=== PATIENT | female | born 1985 | race Caucasian/White ===

== ENCOUNTER 2017-03-31 09:00 | Inpatient (IN) ==
[2017-03-31] MEDS ORDERED: LACTATED RINGERS 500 ML IV PRN (09:25)
[2017-03-31] MEDS ORDERED: ONDANSETRON 4 MG/2 ML VIAL IV PRN ×2 (09:25→12:01)
[2017-03-31] MEDS ORDERED: fentaNYL 2 MCG/ROPIV 0.2% EPID 150 ML EPIDURAL SCH (09:27)
[2017-03-31] MEDS ORDERED: hydrOXYzine HCL 25 MG/1 ML VIAL IM PRN (09:27)
[2017-03-31] MEDS ORDERED: diphenhydrAMINE 50 MG/1 ML VIAL IV PRN (09:27)
[2017-03-31] MEDS ORDERED: LACTATED RINGERS 500 ML IV ONE (09:27)
[2017-03-31] MEDS ORDERED: LACTATED RINGERS 1,000 ML IV ONE (09:27)
[2017-03-31] MEDS ORDERED: ePHEDrine 50 MG/ML AMP IV PRN (09:27)
[2017-03-31] MEDS ORDERED: FAMOTIDINE 20 MG/2 ML VIAL IV ONE (09:29)
[2017-03-31] MEDS ORDERED: CITRIC ACID/SODIUM CITRATE 30 ML UDCUP PO ONE (09:29)
[2017-03-31] MEDS ORDERED: LACTATED RINGERS 1,000 ML IV SCH (09:30)
[2017-03-31 09:57] LABS: Basophils % 0.3 % (0.0-0.8); Eosinophils # 0.1 10*3/uL (0.0-0.87); Eosinophils % 0.8 % (0.00-10.9); Immature Granulocytes % 0.8 %; Immature Granulocytes Absolute 0.07 #; Lymphocytes % 22.5 % (21.3-54.2); Mean Corpuscular HGB Conc 35.5 GM/DL (32-36); Mean Corpuscular Hemoglobin 33 PG (27-34); Mean Corpuscular Volume 94.2 FL (87-102); Mean Platelet Volume 10.5 FL (9.6-12.0); Monocytes # 0.7 10*3/uL (0.11-0.8); Monocytes % 7.8 % (1.7-12.7); Neutrophils # 6.1 10*3/uL (1.4-7.4); Neutrophils % 67.8 % (38.7-73.9); Platelet Count 275 T/CUMM (130-400); Red Blood Count 3.29 MC/CUMM (3.8-5.5); Red Cell Distribution Width 13.9 % (9.3-17.3); White Blood Count 8.9 T/CUMM (4-12)
[2017-03-31] MEDS: LACTATED RINGERS 1,000 ML IV SCH ×6 (10:08→18:46)
[2017-03-31] MEDS ORDERED: OXYTOCIN/LR 20 UNIT/1,000 ML BAG IV ONE ×3 (10:18→12:01)
[2017-03-31] MEDS ORDERED: ONDANSETRON 4 MG/2 ML VIAL ONE (10:37)
[2017-03-31] MEDS ORDERED: PHENYLEPHRINE 1 MG/10 ML SYRINGE IV ONE (10:37)
[2017-03-31] MEDS ORDERED: METHYLERGONOVINE 0.2 MG/1 ML AMP ONE (11:21)
[2017-03-31] MEDS ORDERED: RHO(D) IMMUNE GLOBULIN 300 MCG SYRINGE IM ONE (12:01)
[2017-03-31] MEDS ORDERED: ACETAMINOPHEN 325 MG TABLET PO PRN (12:01)
--- NOTE | 2017-03-31 12:01 | History and Physical Update ---
History and Physical Update - History and Physical H&P was reviewed, the patient examined and there: are no changes in the patients condition since last H&P was completed. - Dictation Physical: refer to scanned H&P - Physical Exam Mental Status: alert and oriented Heart: regular rate and rhythm Lung: clear to auscultation Abdomen: within normal limits Vitals: within normal limits History and Physical Changes: 39 wks admitted for Repeat C/S, BTL
[2017-03-31] MEDS ORDERED: fentaNYL 100 MCG/2 ML VIAL ONE (12:10)
[2017-03-31] MEDS ORDERED: MORPHINE 10 MG/10 ML VIAL ONE (12:11)
[2017-03-31] MEDS ORDERED: MIDAZOLAM 2 MG/2 ML VIAL ONE (12:13)
[2017-03-31 12:23] LABS: Apearance,Urine CLEAR (Clear); Bilirubin,Urine Negative (Negative); Blood, Urine Negative (Negative); Glucose,Urine (UA) Negative (Negative); Ketones,Urine Negative (Negative); Nitrite,Urine Negative (Negative); Protein,Urine Negative; RBC,Urine <1 /HPF (0-4); Urine Color Colorless (Yellow); Urine Specific Gravity 1.001 (1.001-1.035); Urine Urobilinogen < 2.0 EU/DL (0.2-1.0); WBC,Urine <1 /HPF (0-6)
--- NOTE | 2017-03-31 12:42 | Anesthesia Post-Op ---
Anesthesia Post OP - Post Ansesthetic Evaluation Patient seen in post op: Yes Resp: within normal limits CV: within normal limits Mental: within normal limits Temp: within normal limits [id number]: within normal limits Nausea and Vomiting: within normal limits Pain: within normal limits
[2017-03-31] MEDS ORDERED: HYDROmorphone 2 MG/1 ML VIAL ONE (13:34)
[2017-03-31] MEDS: HYDROmorphone 2 MG/1 ML VIAL IV PRN ×2 (13:37→18:15)
[2017-03-31] MEDS: diphenhydrAMINE 50 MG/1 ML VIAL IV PRN ×2 (18:44→22:25)
[2017-03-31 19:36] LABS: Basophils % 0.2 % (0.0-0.8); Eosinophils # 0.1 10*3/uL (0.0-0.87); Eosinophils % 0.6 % (0.00-10.9); Hematocrit 24.8 VOL% (35.7-47.0); Hemoglobin 8.8 GM/DL (12.0-16.0); Immature Granulocytes % 0.4 %; Immature Granulocytes Absolute 0.05 #; Lymphocytes % 17.2 % (21.3-54.2); Mean Corpuscular HGB Conc 35.5 GM/DL (32-36); Mean Corpuscular Hemoglobin 34 PG (27-34); Mean Corpuscular Volume 94.7 FL (87-102); Mean Platelet Volume 10.3 FL (9.6-12.0); Monocytes # 0.6 10*3/uL (0.11-0.8); Monocytes % 5.4 % (1.7-12.7); Neutrophils # 8.7 10*3/uL (1.4-7.4); Neutrophils % 76.2 % (38.7-73.9); Platelet Count 214 T/CUMM (130-400); Red Blood Count 2.62 MC/CUMM (3.8-5.5); Red Cell Distribution Width 13.8 % (9.3-17.3); White Blood Count 11.4 T/CUMM (4-12)
[2017-03-31] MEDS: DOCUSATE SODIUM 100 MG CAPSULE PO SCH (22:19)
[2017-03-31] MEDS: oxyCODONE/ACETAMINOPHEN 5-325 MG TABLET PO PRN (22:25)
[2017-03-31] MEDS: IBUPROFEN 800 MG TABLET PO PRN (22:25)
[2017-04-01] MEDS: LACTATED RINGERS 1,000 ML IV SCH (02:39)
[2017-04-01] MEDS: oxyCODONE/ACETAMINOPHEN 5-325 MG TABLET PO PRN ×4 (04:33→23:29)
[2017-04-01 07:04] LABS: Basophils % 0.3 % (0.0-0.8); Eosinophils # 0.2 10*3/uL (0.0-0.87); Eosinophils % 1.5 % (0.00-10.9); Hematocrit 26.5 VOL% (35.7-47.0); Immature Granulocytes % 0.7 %; Immature Granulocytes Absolute 0.08 #; Lymphocytes % 19.1 % (21.3-54.2); Mean Corpuscular Hemoglobin 33 PG (27-34); Mean Corpuscular Volume 96.7 FL (87-102); Mean Platelet Volume 10.6 FL (9.6-12.0); Monocytes # 0.7 10*3/uL (0.11-0.8); Monocytes % 6.7 % (1.7-12.7); Neutrophils # 7.7 10*3/uL (1.4-7.4); Neutrophils % 71.7 % (38.7-73.9); Platelet Count 230 T/CUMM (130-400); Red Blood Count 2.74 MC/CUMM (3.8-5.5); Red Cell Distribution Width 14.1 % (9.3-17.3); White Blood Count 10.7 T/CUMM (4-12)
[2017-04-01] MEDS: diphenhydrAMINE 50 MG/1 ML VIAL IV PRN ×2 (07:50→22:50)
[2017-04-01] MEDS: MULTIVITAMIN (PRENATAL) TABLET PO SCH (08:37)
[2017-04-01] MEDS: DOCUSATE SODIUM 100 MG CAPSULE PO SCH ×2 (08:37→22:44)
[2017-04-01] MEDS: SIMETHICONE CHEW 80 MG TABLET PO PRN ×2 (08:38→22:45)
[2017-04-01] MEDS: MAGNESIUM HYDROXIDE SUSP 30 ML UDCUP PO PRN ×2 (08:38→22:44)
--- NOTE | 2017-04-01 09:41 | OB/GYN Progress Note ---
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 Expected postop discomfort. 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 - Constitutional Vitals: Vital Signs Temp Pulse Resp BP Pulse Ox 04/01/17 07:45 97.1 F L 72 18 97/56 98 04/01/17 04:00 97.1 F L 72 18 97/50 97 04/01/17 00:00 97.3 F L 76 20 113/66 98 03/31/17 20:00 97.8 F 100 H 18 122/70 97 03/31/17 18:10 98.2 F 86 20 110/75 95 03/31/17 09:40 76 119/73 General appearance: normal weight, no acute distress - Head Head exam: Present: normal inspection, normocephalic - Eye Eye exam: Present: EOMI - Respiratory Respiratory exam: Present: clear to auscultation bilaterally - Cardiovascular Cardiovascular exam: Present: regular rate and rhythm - GI/Abdominal GI/Abdominal exam: Present: soft (fundus firm, nontender; Incision intact without E/I/D) - Extremities Exam Extremities exam: Present: normal inspection - Neurological Exam Neurological exam: Present: alert, oriented X3 - Psychiatric Psychiatric exam: Present: normal affect, normal mood - Skin Skin exam: Present: normal color, warm Results - Labs CBC & BMP: 04/01/17 06:46 Lab Results: I have reviewed the past 24 hour labs
[2017-04-01] MEDS: IBUPROFEN 800 MG TABLET PO PRN (18:18)
[2017-04-01] MEDS ORDERED: BISACODYL 10 MG SUPP RECTAL PRN (22:45)
[2017-04-02] MEDS: oxyCODONE/ACETAMINOPHEN 5-325 MG TABLET PO PRN (07:45)
[2017-04-02 08:13] VITALS: BP 114/64
[2017-04-02] MEDS: DOCUSATE SODIUM 100 MG CAPSULE PO SCH (09:27)
[2017-04-02] MEDS: MULTIVITAMIN (PRENATAL) TABLET PO SCH (09:28)
--- NOTE | 2017-04-02 10:39 | Discharge Summary ---
Hospital Course - Hospital Course Hospital Course: Pt underwent Repeat C/S, BTL without complications. Her course has been unremarkable. Diagnosis - Discharge Diagnosis (1) delivery delivered Status: Acute (2) Sterilization Status: Acute Discharge Plan - Discharge Data Disposition: Disch To Home/Self Care Condition at Discharge: Stable Discharge Diet: regular diet Activity: other (pelvic rest x 6 wks) Hygiene: may shower Weight Bearing at Discharge: full weight bearing Driving: not until seen by doctor Contact your physician if you experience:: fever over 101, Difficulty voiding, Redness or swelling, Nausea/Vomiting, Shortness of breath, Bleeding, pain uncontrolled by pain medications - Discharge Medications New oxyCODONE/ACETAMINOPHEN 5-325 [Percocet 5-325] 2 tablet PO Q4H PRN #20 tablet PRN Reason: Pain Moderate (4-7) Ibuprofen Tab [Motrin Tab] 800 mg PO Q8H PRN #30 tablet PRN Reason: Pain Severe (8-10) No Action Venlafaxine HCl [Effexor XR] 75 mg PO BID Sertraline [Zoloft] 100 mg PO DAILY Pnv No.95/Ferrous Fum/Folic AC [ Caplet] 1 each PO DAILY - Follow Up or Referral Follow Up: Kaylynn Meyers DO [Physician] - 1 Week - Forms/Instructions Exam - Constitutional Vitals: Period Temp Pulse Resp BP Sys/Ewing Pulse Ox Last 24 Hr 96.7 F-98.5 F 59-81 18-20 85-119/56-73 95-100 General appearance: normal weight, no acute distress - Head Head exam: Present: normal inspection, normocephalic - Eye Eye exam: Present: EOMI - Respiratory Respiratory exam: Present: clear to auscultation bilaterally - Cardiovascular Cardiovascular exam: Present: regular rate and rhythm - GI/Abdominal GI/Abdominal exam: Present: soft (fundus firm, nontender; incision intact without E/I/D) - Extremities Exam Extremities exam: Present: normal inspection - Neurological Exam Neurological exam: Present: alert, oriented X3 - Psychiatric Psychiatric exam: Present: normal affect, normal mood - Skin Skin exam: Present: normal color, warm DS: Provider Date of admission: 03/31/17 09:38 Primary care physician: . No PCP Attending physician on admission: Kaylynn Meyers DO Consults: 03/31/17 09:25 Consult to Anesthesiology [CONS] Routine Consulting Provider: Reason for Anesthesiology: Epidural Consult Comment: Epidural for pain managment 03/31/17 12:01 Consult to Kindergarten Teacher [CONS] Routine Consult Kindergarten Teacher: Breast Feeding Discharging clinician: Kaylynn Meyers DO Expected date of discharge: 04/02/17
--- NOTE | 2017-04-04 13:22 | Pathology Report from [facility] ---
[employer] ACCESSION # : [id number] PATIENT NAME : L[facility] Hope ORDERING DR : SILKE ROLLE CLINICAL HX: 39.1 wks gestation, repeat C/S w/tubal ligation POST-OP DX: Same SPECIMEN INFO: Placenta GROSS DESCRIPTION: Received fresh labeled [facility] & PLACENTA is a 481 gm placenta measuring 20.6 x 14.4 x 3 cm. The membranes are pink mckeon and slightly opaque. The umbilical cord is pericentrally inserted, contains three vessels and measures 32.5 cm in length. The surface is blue darby with areas of subchorionic fibrin present measuring 2.5 cm. The maternal surface is beefy red and displays mildly disrupted cotyledons and areas of adherent clotted blood. Areas of fibrin are noted. Sections submitted A- membranes and cord, B- and maternal surfaces. 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 COLLECTED DATE: 04/03/2017 [facility] REPORT DATE: 04/04/2017 ELECTRONICALLY SIGNED BY: Esteban Fuller M.D. 04/04/2017 - 9:54:49 MTDArely
== END 2017-04-02 11:50 | disposition home or self-care (01) | DRG 540 ==
LOC: N.LDOUT 09:00 → N.LD 09:03 → N.OB 18:00
PROVIDERS: ADMIT Obstetrics & Gynecology; ATTEND Obstetrics & Gynecology